=== PATIENT | male | born 1960 | race Caucasian/White ===

== ENCOUNTER 2018-06-20 08:12 | Day surgery (SDC) | payer BC ==
--- NOTE | 2018-06-16 15:43 | RAD REPORT ---
EXAM DESCRIPTION: RAD - Chest Pa And Lat (2 Views) - 06/16/2018 3:34 pm CLINICAL HISTORY: Preop chest, pending abdominal hernia repair, smoking history COMPARISON: None. TECHNIQUE: PA and lateral views of the chest were obtained. FINDINGS: The lungs are clear of a focal mass, consolidation or failure finding. Interstitial markin gs are mildly prominent presumed to be baseline. Heart size is normal and central vasculature is wi thin normal limits. No pleural effusion or pneumothorax seen. No acute bony finding noted. No aort ic abnormality. IMPRESSION: No acute cardiopulmonary process.
[2018-06-16 15:44] LABS: Absolute Lymphocytes (CBC) 3.5 K/uL (0.7-4.9); Absolute Monocytes 0.9 K/uL (0.1-1.3); Absolute Neutrophil 6.9 K/uL (1.8-8.0); Basophils % 0.5 % (0-1.3); Eosinophils % 2.6 % (0-4.4); Hematocrit 47.8 % (39.6-49.0); Lymphocytes % 30.3 % (15.3-44.8); MPV 7.3 fL (7.6-11.3); Monocytes % 7.4 % (3.3-12.3); RBC Red Blood Cell Count 5.04 M/uL (4.33-5.43)
[2018-06-16 15:50] LABS: BUN Blood Urea Nitrogen 11 mg/dL (7-18); Bicarbonate 28 mmol/L (21-32); Glucose Level 84 mg/dL (74-106); Sodium Level 143 mmol/L (136-145)
--- NOTE | 2018-06-16 21:37 | EKG ---
Test Date: 2018-06-16 Test Time: 15:20:42 Junior Account Manager: DAKOTA MEASUREMENT RESULTS: Intervals: Rate: 69 MO: 174 QRSD: 86 QT: 386 QTc: 413 Jackson: P: 53 MO: 174 QRS: 38 T: 58 INTERPRETIVE STATEMENTS: Normal sinus rhythm with sinus arrhythmia Normal ECG Compared to ECG 04/30/2015 14:19:56 No significant changes Electronically Signed On 06-16-18 21:35:31 OPHTHALMIC MEDICAL TECHNOLOGIST by Jonathon Wood
[2018-06-20] MEDS ORDERED: Ringers Lactate 1,000 ML IV ONE (08:41)
[2018-06-20] MEDS ORDERED: BUPIVACAINE 0.5% PF 10 ML VIAL ONE (08:43)
[2018-06-20] MEDS ORDERED: PROPOFOL 200 MG/20 ML VIAL IV ONE (08:50)
[2018-06-20] MEDS ORDERED: ONDANSETRON 4 MG/2 ML VIAL ONE (08:51)
[2018-06-20] MEDS ORDERED: ROCURONIUM 50 MG/5 ML VIAL IV ONE (08:51)
[2018-06-20] MEDS ORDERED: MIDAZOLAM HCL 2 MG/2 ML INJ ONE (08:51)
[2018-06-20] MEDS ORDERED: LIDOCAINE 2% MPF 5 ML VIAL ONE (08:51)
[2018-06-20] MEDS ORDERED: FENTANYL CITR 100 MCG/2 ML ONE (08:51)
[2018-06-20] MEDS ORDERED: CEFAZOLIN/SWI 1gm 1 GM/10 ML SYR ONE (08:58)
--- NOTE | 2018-06-20 09:34 | P.BOP ---
Preoperative diagnosis: incarcerated incisional ventral hernia Postoperative diagnosis: same Primary procedure: Open repair of incarcerated incisional ventral hernia Mica Plate Layer Hand: Snow Hernandez (Radha) Estimated blood loss: <20cc Specimen: henia sac Findings: incarcerated omentum Anesthesia: General Complications: None Transferred to: Recovery Room Condition: Good
[2018-06-20] MEDS ORDERED: GLYCOPYRROLATE 0.2 MG/ML SYR ONE (09:36)
[2018-06-20] MEDS ORDERED: NEOSTIGMINE 1 MG/ML -10 ML VIAL ONE (09:36)
[2018-06-20] MEDS ORDERED: KETOROLAC 30 MG/ML INJ ONE (09:36)
[2018-06-20] MEDS ORDERED: CODEINE 30MG/APAP 300MG TAB ONE (11:15)
--- NOTE | 2018-06-20 20:44 | DS ---
Date of Discharge: 06/20/2018 Diagnosis: Incarcerated incisional ventral hernia. Procedure: Open repair of incarcerated incisional ventral hernia. Disposition: Home. Activity: As tolerated. No heavy lifting. Followup Instructions: Follow up in my office in 1 week. Call for an appointment on [phone]. Keep the area dry for 48 hours, then may shower. Keep Steri-Strips intact. Home Medications: See orders. ALISON/MARTIN Voice ID: [id number] Report ID: [id number]
--- NOTE | 2018-06-20 20:44 | OP ---
Date of Procedure: 06/20/2018 Surgeon: Rasheed Wray MD Rn Obgyn: Snow Hernandez. Preoperative Diagnosis: Incarcerated incisional ventral hernia. Postoperative Diagnosis: Incarcerated incisional ventral hernia. Procedure: Open repair of incarcerated incisional ventral hernia. Specimen: Hernia sac. Findings: Incarcerated omentum. Indications: This is the case of a 58-year-old patient who had abdominal surgery done, he claimed, a bout 30 years ago, midline incision, now comes with bulging of the upper ventral region, diagnosed wi th an incarcerated incisional hernia. He wanted a repair. This was giving him pain and discomfort. The benefits, alternatives, and risks of repair, open versus laparoscopic, were fully explained to t he patient, including also possibly use of mesh with benefits, alternatives, and risks including, but not limited to infection, bleeding, damage to adjacent structures, anesthesia complications, recurre nce, NE, and even . He also understands this may not relieve the symptoms. He might need more than one surgical intervention. It was explained to him the pros and cons of mesh placement. All th e questions were answered to his satisfaction, and he will allow me to use mesh if needed. Description Of Procedure: The patient was brought to the operating room, placed in supine position. The area of concern was marked by me and the patient in the holding room. A time-out was called. A bdomen was prepped and draped in a sterile fashion. A midline incision was done over the area of the bulging, and hernia was found. Incision was carried down to fascia. We noticed that hernia just to be viable. It had some incarcerated omentum. After removing some adhesions, we were able to reduce back the omentum, and the hernia sac was carefully removed. The fascial edges were cleaned. After we got the fascia edges together, we proceeded then to close the fascia edges with #1 Prolene in a fi [id number] fashion multiple times. Sponge count and instrument counts were correct. A 3-0 chromi c was used to close the subcutaneous tissue and then the skin in a subcuticular fashion with 4-0 PDS. The patient was sent to recovery room in stable condition. Sponge count and instrument counts were correct. ALISON/MARTIN Voice ID: [id number] Report ID: [id number]
== END 2018-06-20 12:10 | disposition home or self-care (01) ==
LOC: OR 08:12
PROVIDERS: ATTEND Surgery
PROC: 0WQF0ZZ Repair Abdominal Wall, Open Approach (ICD-10-PCS; principal; 2018-06-20 09:15)
DX: K43.0 Incisional hernia with obstruction, without gangrene (principal); F17.210 Nicotine dependence, cigarettes, uncomplicated
CPT/HCPCS: 36415; 71046; 80048; 85025; 88302; 93005; J0690; J2250; J2405; J2704; J2710; J3010

== ENCOUNTER 2025-01-31 06:00 | Day surgery (SDC) | payer BC, OTHER ==
[2025-01-29 11:16] LABS: Absolute Lymphocytes (CBC) 2.1 K/uL (0.7-4.9); Hematocrit 46.4 % (39.6-49.0); Hemoglobin 15.7 g/dL (13.6-17.9); MCH 32.5 pg (27.0-35.0); MCHC 33.9 g/dL (32.0-36.0); MCV 95.9 fL (80-100); MPV 6.7 fL (7.6-11.3); Nucleated RBC Absolute Count 0.0 (0-0); Nucleated Red Blood Cells % 0.1 % (0-0); RBC Red Blood Cell Count 4.84 M/uL (4.33-5.43); White Blood Count 9.30 thou/uL (4.3-10.9)
[2025-01-29 11:31] LABS: Anion Gap 6.5 mEq/L (5.0-15.0); BUN Blood Urea Nitrogen 11.0 mg/dL (7-18); Glucose Level 101.0 mg/dL (74-106); Potassium 4.5 mEq/L (3.5-5.1)
--- NOTE | 2025-01-29 11:44 | RAD REPORT ---
Procedure: Chest Pa And Lat (2 Views) HISTORY: Preop COMPARISON: 2021 FINDINGS: The lungs appear clear of acute infiltrate.. Lungs are mildly to moderately hyperaerated. No significant pleural effusion noted. The heart is normal size. IMPRESSION: No acute abnormality is displayed.
[2025-01-31] MEDS ORDERED: Ringers Lactate 1,000 ML IV ONE (06:24)
[2025-01-31] MEDS ORDERED: ROCURONIUM 50 MG/5 ML VIAL IV ONE (07:16)
[2025-01-31] MEDS ORDERED: FENTANYL CITR 100 MCG/2 ML ONE (07:16)
[2025-01-31] MEDS ORDERED: ONDANSETRON 4 MG/2 ML VIAL ONE (07:16)
[2025-01-31] MEDS ORDERED: LIDOCAINE 2% MPF 5 ML VIAL ONE (07:16)
[2025-01-31] MEDS ORDERED: MIDAZOLAM HCL 2 MG/2 ML INJ ONE (07:16)
[2025-01-31] MEDS: CEFAZOLIN SODIUM 1 GM/VIAL ONE (07:59)
[2025-01-31] MEDS ORDERED: GLYCOPYRROLATE 0.2 MG/ML SYR ONE ×2 (08:13→08:26)
[2025-01-31] MEDS ORDERED: NEOSTIGMINE 1 MG/ML -10 ML VIAL ONE (08:25)
[2025-01-31] MEDS ORDERED: KETOROLAC 30 MG/ML INJ ONE (08:31)
--- NOTE | 2025-01-31 08:44 | P.BOP ---
Preoperative diagnosis: tender reducible Left inguinal hernia, left post neck subQ mass Postoperative diagnosis: same Primary procedure: 1. Laparoscopic repair of tender reducible Left inguinal hernia with mesh Secondary procedure: 2. Excisional biopsy of left posterior neck subQ mass Estimated blood loss: <10cc Specimen: mass Findings: mass Anesthesia: General Complications: None Implants: medium ParieteneDS, MAxTack Transferred to: Recovery Room Condition: Good
[2025-01-31 09:12] VITALS: O2SAT 97
[2025-01-31] MEDS: TAMSULOSIN 0.4 MG SR CAP ONE (10:05)
[2025-01-31 10:37] VITALS: BP 157/63; TEMP 97
--- NOTE | 2025-02-01 19:55 | OP ---
Surgeon: Rasheed Wray MD Preoperative Diagnoses: Tender reducible left inguinal hernia and left posterior neck subcutaneous m ass. Postoperative Diagnoses: Tender reducible left inguinal hernia and left posterior neck subcutaneous mass. Procedures: 1. Laparoscopic repair of tender reducible left inguinal hernia with mesh. 2. Excisional biopsy of left posterior neck subcutaneous mass. Estimated Blood Loss: Less than 10 cc. Specimen: Mass. Anesthesia: General plus local. Implants: Medium Parietene DS mesh and MaxTack on the inguinal hernia. Indications: This is the case of a 64-year-old patient who came to us with two problems. He wants t wo of them fixed at the same time. The most important of those will be the hernia. The benefits, al ternatives, and risks of laparoscopic versus open repair of left inguinal hernia with mesh and also e xcisional biopsy of neck mass fully explained, which include, but not limited to, infection, bleeding , damage to adjacent structures, anesthesia complication, recurrence, AL, and even . He also un derstands this may not relieve any symptoms, he might need more than one surgical intervention. He u nderstood, signed a consent. We explained to him we will be doing the hernia first because we might have to do mesh in that region. We wanted to make sure that it is absolutely pristine clean. He und erstands we might have to just finish the hernia, then reach parietal peritoneum again and start the neck mass. He knows that the surgical team knows about that too. Description Of Procedure: So, we went first to the hernia. Abdomen was prepped and draped in a ster ile fashion including the inguinal region. A time-out was called. An incision was made of the infra umbilical region. Incision was carried down to fascia until when we found the anterior rectus sheath . We opened that on the left side. The muscle retracted laterally to expose the posterior rectus sh eath. The extraperitoneal space was gently developed with the help of blunt dissection and a balloon tipped trocar was placed in that area directed to the pubis symphysis, and after that, with the lapa roscope in place, we proceeded to inflate the balloon until we created the extraperitoneal space. Af ter that, the balloon was deflated, removed. The area was insufflated. Camera was placed once again and under direct visualization after insufflation, a 5 mm trocar was placed just above the pubis sym physis and another one assisted between the first and the second one. The preperitoneal space was fur ther developed by exposing the inferior epigastric vessels keeping them anterior. The Miguel's ligam ent was dissected lateral to a junction with the iliac veins and dissection continued inferiorly to t he iliopubic tract avoiding damage to the femoral branch of the genitofemoral nerve. The cord struct ures were carefully skeletonized. The hernia was identified and reduced by gentle traction into the peritoneal cavity. After that, we proceeded then to roll a Parietene DS mesh into the area of the wo rking space through the trocar, and the mesh was secured in place laterally and superior to the iliop ubic tract and inferior and medial to the Miguel's ligament with the help of MaxTack device. After e nsuring adequate hemostasis, the insufflation was stopped and the air allowed to escape while we were holding the mesh in place. The trocars were removed, and anterior rectus sheath was approximated wi th #1 Vicryl and the skin approximated. The patient tolerated the procedure well. Sponge counts and instrument counts were correct. After that, we took everything down and re-scrub everything again f or the posterior neck mass. The area was previously marked by me and the patient in the holding room . So, we prepped and draped the left posterior neck in the usual sterile fashion. At that moment, w e already have sponge counts and instrument counts correct and a time-out again. Once we identified the area, we made an incision in a wedged fashion. Incision was carried down to subcutaneous tissue. The mass was excised. Area was irrigated. Then, after that, obtained hemostasis and then closed t he area with a combination of absorbable stitches. Sterile dressings were placed over the area. Spo nge counts and instrument counts were correct. The patient sent to recovery in stable condition. ALISON/MARTIN Voice ID: [id number] Report ID: [id number]
--- NOTE | 2025-02-01 19:59 | DS ---
Date of Discharge: 01/31/2025 Diagnoses: Tender reducible left inguinal hernia and left posterior neck subcutaneous mass. Procedure: Laparoscopic repair of tender reducible left inguinal hernia with mesh and excisional bio psy of left posterior neck subcutaneous mass. Condition: Stable. Disposition: Home. Activity: As tolerated. No heavy lifting. Discharge Instructions: Follow up in my office in 1 week. Call for appointment at [phone]. Keep a autumn dry for 48 hours, then may shower medications were called to the pharmacy. AILSON/MARTIN Voice ID: [id number] Report ID: [id number]
== END 2025-01-31 10:50 | disposition home or self-care (01) ==
LOC: OR 06:00
PROVIDERS: ATTEND Surgery
PROC: 0JB50ZZ Excision of Left Neck Subcutaneous Tissue and Fascia, Open Approach (ICD-10-PCS; principal; 2025-01-31 07:30)
PROC: 0YU64JZ Supplement Left Inguinal Region with Synthetic Substitute, Percutaneous Endoscopic Approach (ICD-10-PCS; 2025-01-31 07:30)
DX: K40.90 Unilateral inguinal hernia, without obstruction or gangrene, not specified as recurrent (principal); L72.0 Epidermal cyst
CPT/HCPCS: 93005; 85025; 80048; 36415; 88304; 71046; 11422; 49650; J1885; J2704; J2710; J2003; J2250; J3010; J1100; J2405; J7120; J0690; C1781

== ENCOUNTER 2025-01-31 18:11 | Emergency (ER) | payer BC, OTHER ==
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
[2025-01-31] MEDS ORDERED: TAMSULOSIN 0.4 MG SR CAP ONE (19:18)
[2025-01-31] MEDS ORDERED: HYDROCODONE/APAP 7.5/325 MG TAB ONE (20:02)
[2025-01-31 20:12] LABS: Absolute Lymphocytes (CBC) 0.9 K/uL (0.7-4.9); Hematocrit 43.9 % (39.6-49.0); Hemoglobin 15.1 g/dL (13.6-17.9); MCH 32.3 pg (27.0-35.0); MCHC 34.3 g/dL (32.0-36.0); MCV 94.3 fL (80-100); MPV 7.0 fL (7.6-11.3); Nucleated RBC Absolute Count 0.0 (0-0); Nucleated Red Blood Cells % 0.0 % (0-0); RBC Red Blood Cell Count 4.66 M/uL (4.33-5.43); White Blood Count 16.70 thou/uL (4.3-10.9)
[2025-01-31 20:15] LABS: Blood Morphology Comment NOT SEEN (NOT SEEN); White Blood Cell Scan OK (OK)
[2025-01-31 20:40] LABS: Anion Gap 10.8 mEq/L (5.0-15.0); BUN Blood Urea Nitrogen 14.0 mg/dL (7-18); Glucose Level 113.0 mg/dL (74-106); Potassium 4.8 mEq/L (3.5-5.1)
[2025-01-31 20:41] LABS: Sqamous Epithelial None Seen /HPF (None Seen); Urine Crystals Unidentified Few /HPF (None Seen); Urine Culture Reflex Order REFLEXED; Urine Microscopic Reflex YN ORDER UMIC
[2025-01-31] MEDS ORDERED: CEFTRIAXONE 1000 MG/VIAL ONE (20:58)
[2025-01-31] MEDS ORDERED: NA CHLORIDE 0.9% 50 ML ONE (20:59)
--- NOTE | 2025-01-31 21:35 | EDPHYS ---
Physician Documentation [facility] Name: Stevan Wong Age: 64 yrs Sex: Male : 1960 Arrival Date: 01/31/2025 Time: 18:11 Bed 4 Private MD: ED Physician Jaylon Mcdonald HPI: 01/31 19:00 This 64 yrs old Male presents to ER via Ambulatory with complaints of Urinary Problem. cp 19:00 Patient is a 64-year-old male who presents to the emergency department with complaints cp of inability to urinate. Patient reports she was discharged from the hospital today after having hernia repair surgery by Dr. Wray. Prior to discharge the Bowie catheter was removed and patient reports he has not been able to urinate since removal of the Bowie catheter. Patient denies fever and reports he was discharged with a prescription of antibiotics postsurgery. Historical: - Allergies: 18:39 No Known Allergies; jb4 - PMHx: 18:39 hernia; jb4 - PSHx: 18:39 hernia repair; jb4 - Immunization history:: Adult Immunizations unknown. - Infectious Disease History:: Denies. - Social history:: Smoking status: Patient reports the use of cigarette tobacco products, smokes one pack cigarettes per day. ROS: 19:05 Constitutional: Negative for body aches, chills, fever, poor PO intake, cp 19:05 Cardiovascular: Negative for chest pain, palpitations, cp 19:05 Respiratory: Negative for cough, shortness of breath, wheezing, 19:05 Abdomen/GI: Positive for abdominal pain, nausea, Negative for vomiting, diarrhea, constipation, 19:05 : Positive for difficulty urinating, 19:05 Neuro: Negative for altered mental status, dizziness, headache, weakness, 19:05 All other systems are negative, Exam: 19:05 Head/Face: Normocephalic, atraumatic. cp 19:05 Constitutional: The patient appears in no acute distress, alert, awake, non-diaphoretic, non-toxic, well developed, well nourished, uncomfortable, 19:05 Eyes: Periorbital structures: appear normal, Conjunctiva: normal, no exudate, no injection, Sclera: no appreciated abnormality, Lids and lashes: appear normal, bilaterally, 19:05 ENT: External ear(s): are unremarkable, Nose: is normal, Mouth: Lips: moist, Oral mucosa: moist, Posterior pharynx: Airway: no evidence of obstruction, patent, 19:05 Chest/axilla: Inspection: normal, 19:05 Cardiovascular: Rate: normal, Rhythm: regular, Edema: is not appreciated, JVD: is not appreciated, 19:05 Respiratory: the patient does not display signs of respiratory distress, Respirations: normal, no use of accessory muscles, no retractions, labored breathing, is not present, Breath sounds: are clear throughout, no decreased breath sounds, no stridor, no wheezing, 19:05 Abdomen/GI: Inspection: abdomen appears normal, Bowel sounds: active, all quadrants, Palpation: soft, in all quadrants, moderate abdominal tenderness, in the suprapubic area, rebound tenderness, is not appreciated, 19:05 Back: CVA tenderness, is absent, 19:05 Neuro: Orientation: to person, place \T\ time. Mentation: is normal, Motor: moves all fours, strength is normal, Sensation: is normal, Gait: is steady, Vital Signs: 18:32 BP 153 / 106; Pulse 77; Resp 16; Pulse Ox 99% on R/A; Weight 62.14 kg (R); Height 5 ft. jb4 8 in. ; Pain 9/10; 20:14 BP 153 / 79; Pulse 66; Resp 18; Pulse Ox 100% on R/A; kb4 21:56 BP 132 / 90; Pulse 54; Resp 18; Pulse Ox 100% on R/A; kb4 18:32 Body Mass Index 20.83 (62.14 kg, 172.72 cm) jb4 18:32 Pain Scale: Adult jb4 MDM: 21:33 Data reviewed: vital signs, nurses notes, lab test result(s), and as a result, I will cp discharge patient. 21:33 I considered the following discharge prescriptions or medication management in the cp emergency department Medications were administered in the Emergency Department. See MAR. Counseling: I had a detailed discussion with the patient and/or guardian regarding the historical points, exam findings, and any diagnostic results supporting the discharge/admit diagnosis, lab results, the need for outpatient follow up, for definitive care, a urologist, to return to the emergency department if symptoms worsen or persist or if there are any questions or concerns that arise at home. Response to treatment: the patient's symptoms have resolved after treatment, Bowie Catheter placed with approximately 600 cc urine output. Labs reviewed and will discharge to home with Bowie catheter in place to f/u with urology. 21:34 Medical Screening Exam initiated cp 01/31 18:50 Order name: CBC with Diff; Complete Time: 20:22 cp 01/31 20:22 Interpretation: Normal except: WBC 16.70; MPV 7.0; ARIAN% 90.7; LYM% 5.6; NEUT A 15.2. cp 01/31 20:15 Order name: CBC Smear Scan; Complete Time: 20:22 EDMS 01/31 20:22 Order name: UA Rfx Nicholas Cult if indicated; Complete Time: 20:51 cp 01/31 21:31 Interpretation: Reviewed. cp 01/31 20:23 Order name: BMP; Complete Time: 20:51 cp 01/31 20:51 Interpretation: Normal except: NA 131; GLUC 113; GFR 73. cp 01/31 20:52 Order name: Urine Culture EDMS 01/31 18:50 Order name: IV Saline Lock; Complete Time: 19:25 cp 01/31 18:50 Order name: Labs collected and sent; Complete Time: 19:25 cp 01/31 18:50 Order name: Bladder Scanner: pre and post void; Complete Time: 19:44 cp 01/31 18:50 Order name: Bowie: if unable to void; Complete Time: 19:53 cp Administered Medications: 19:25 Drug: Flomax PO 0.4 mg PO once Route: PO; kb4 20:15 Follow up: Response: No adverse reaction kb4 20:05 Drug: Hydrocodone-Acetaminophen PO (7.5 mg-325 mg) 1 tabs PO once; RASS on ADMIN: kb4 Combtv4, Very Agttd3, Agttd2, Rstlss1, AlertClm0, Drwsy-1, Lt Sdtn-2, Mod Sdtn-3, Dp Sdtn-4, UnArsble-5 Route: PO; 20:15 Follow up: Response: No adverse reaction kb4 21:58 Follow up: Response: No adverse reaction kb4 21:02 Drug: Rocephin IV 1 grams IV at calculated rate once; Given slow IV push per pharmacy kb4 instructions Route: IV; Rate: calculated rate; Site: right antecubital; 21:58 Follow up: Response: No adverse reaction kb4 21:57 Drug: Ciprofloxacin PO 500 mg PO once Route: PO; kb4 21:58 Follow up: Response: Medication administered at discharge. kb4 Disposition: 02/01 19:59 Chart complete. cp 20:09 I was immediately available on-site in the Emergency Department for consultation in the ms3 care of the patient. Disposition Summary: 01/31/25 21:34 Discharge Ordered Notes: Location: Home cp Problem: new cp Symptoms: have improved cp Condition: Stable cp Diagnosis - Retention of urine, unspecified cp - UTI/ Urinary tract infection, site not specified cp Followup: cp - With: Freddy Jaquez MD - When: 5 - 6 days - Reason: urine retention Discharge Instructions: - Discharge Summary Sheet cp - Acute Urinary Retention, Male cp - Urinary Tract Infection, Adult cp Forms: - Medication Reconciliation Form cp - Antibiotic Education cp - Prescription Opioid Use cp - Patient Portal Instructions cp - Leadership Thank You Letter cp Prescriptions: - Cephalexin 500 mg Oral Capsule - take 1 capsule ORAL route every 12 hours for 10 days; 20 capsule; Refills: 0, cp Product Selection Permitted Signatures: Dispatcher [employer] EDIL Mateo Ruelas PA-C PA-C cp Bert Travis, RN RN jb4 Jaylon Mcdonald DO DO ms3 Stella Varghese, ARIK RN kb4 Corrections: (The following items were deleted from the chart) 01/31 20:23 20:23 BASIC METABOLIC PANEL+C.LAB.BRZ ordered. [facility] EDIL 02/01 19:59 01/31 21:33 Response to treatment: the patient's symptoms have resolved after cp treatment, Bowie Catheter placed with approximately 400 to 500 cc urine output. Labs reviewed and will discharge to home with Bowie catheter in place to f/u with urology, cp
--- NOTE | 2025-01-31 21:35 | ER ---
Nurse's Notes [facility] Name: Stevan Wong Age: 64 yrs Sex: Male : 1960 Arrival Date: 01/31/2025 Time: 18:11 Bed 4 Private MD: Diagnosis: Retention of urine, unspecified;UTI/ Urinary tract infection, site not specified Presentation: 01/31 18:32 Chief complaint: Patient states: I had hernia repair surgery earlier this morning. They jb4 put a wells in during the surgery and pulled it out around 0930, I have not been able to urinate since. Coronavirus screen: At this time, the client does not indicate any symptoms associated with coronavirus-19. Ebola Screen: No symptoms or risks identified at this time. Initial Sepsis Screen: Does the patient meet any 2 criteria? No. Patient's initial sepsis screen is negative. Does the patient have a suspected source of infection? No. Patient's initial sepsis screen is negative. Risk Assessment: Do you want to hurt yourself or someone else? Patient reports no desire to harm self or others. Onset of symptoms was January 31, 2025. Transition of care: patient was not received from another setting of care. 18:32 Method Of Arrival: Ambulatory jb4 18:32 Acuity: AJAY 3 jb4 Triage Assessment: 18:32 General: Appears in no apparent distress. uncomfortable, Behavior is calm, cooperative, jb4 appropriate for age. Pain: Complains of pain in suprapubic area Pain does not radiate. Pain currently is 9 out of 10 on a pain scale. Historical: - Allergies: 18:39 No Known Allergies; jb4 - PMHx: 18:39 hernia; jb4 - PSHx: 18:39 hernia repair; jb4 - Immunization history:: Adult Immunizations unknown. - Infectious Disease History:: Denies. - Social history:: Smoking status: Patient reports the use of cigarette tobacco products, smokes one pack cigarettes per day. Screenin:54 [facility] ED Fall Risk Assessment (Adult) History of falling in the last 3 months, kb4 including since admission No falls in past 3 months (0 pts) Confusion or Disorientation No (0 pts) Intoxicated or Sedated No (0 pts) Impaired Gait No (0 pts) Mobility Assist Device Used No (0 pt) Altered Elimination No (0 pt) Score/Fall Risk Level 0 - 2 = Low Risk. Abuse screen: Denies threats or abuse. Denies injuries from another. Nutritional screening: No deficits noted. Tuberculosis screening: No symptoms or risk factors identified. Assessment: 19:43 Reassessment: preformed bladder scan : 630ml. kb4 19:45 General: Appears in no apparent distress. uncomfortable, Behavior is calm, cooperative. kb4 Pain: Complains of pain in abdomen and pelvis and suprapubic area. Neuro: Level of Consciousness is awake, alert, obeys commands, Oriented to person, place, time, situation. Cardiovascular: Patient's skin is warm and dry. Respiratory: Airway is patent is compromised Respiratory effort is even, unlabored, Respiratory pattern is regular, symmetrical. GI: Abdomen is flat, Reports lower abdominal pain. : Wells in place to gravity drainage Urine is blood tinged, Reports inability to void. EENT: No signs and/or symptoms were reported regarding the EENT system. Derm: No signs and/or symptoms reported regarding the dermatologic system. Musculoskeletal: No signs and/or symptoms reported regarding the musculoskeletal system. 19:53 Reassessment: 18 fr Wells inserted. kb4 20:15 Reassessment: awaiting ride home. kb4 21:56 Reassessment: Patient and/or family updated on plan of care and expected duration. Pain kb4 level reassessed. Patient is alert, oriented x 3, equal unlabored respirations, skin warm/dry/pink. attached leg bag to catheter, provided education on catheter care. 21:58 Reassessment: Patient denies pain at this time. Patient states feeling better. Patient kb4 states symptoms have improved. Vital Signs: 18:32 BP 153 / 106; Pulse 77; Resp 16; Pulse Ox 99% on R/A; Weight 62.14 kg (R); Height 5 ft. jb4 8 in. ; Pain 9/10; 20:14 BP 153 / 79; Pulse 66; Resp 18; Pulse Ox 100% on R/A; kb4 21:56 BP 132 / 90; Pulse 54; Resp 18; Pulse Ox 100% on R/A; kb4 18:32 Body Mass Index 20.83 (62.14 kg, 172.72 cm) jb4 18:32 Pain Scale: Adult jb4 ED Course: 18:12 Patient arrived in ED. mr 18:15 Mateo Ruelas PA-C is PHCP. cp 18:15 Jaylon Mcdonald DO is Attending Physician. cp 18:34 Triage completed. jb4 18:40 Arm band placed on left wrist. jb4 19:16 Stella Varghese, RN is Primary Nurse. kb4 20:00 Patient has correct armband on for positive identification. Provided Education on: kb4 catheter care, follow up w/ urology . 20:00 Wells cath inserted, using sterile technique, 18 Fr., by dc, balloon inflated, to kb4 gravity drainage, clamped. Inserted saline lock: 20 gauge in right forearm, using aseptic technique. Blood collected. Flushed with 10 mL NS. 20:00 No provider procedures requiring assistance completed. Inserted saline lock: 20 gauge kb4 in right forearm, using aseptic technique. 21:33 Freddy Jaquez MD is Referral Physician. cp 21:57 IV discontinued, intact, bleeding controlled, No redness/swelling at site. Pressure kb4 dressing applied. Administered Medications: 19:25 Drug: Flomax PO 0.4 mg PO once Route: PO; kb4 20:15 Follow up: Response: No adverse reaction kb4 20:05 Drug: Hydrocodone-Acetaminophen PO (7.5 mg-325 mg) 1 tabs PO once; RASS on ADMIN: kb4 Combtv4, Very Agttd3, Agttd2, Rstlss1, AlertClm0, Drwsy-1, Lt Sdtn-2, Mod Sdtn-3, Dp Sdtn-4, UnArsble-5 Route: PO; 20:15 Follow up: Response: No adverse reaction kb4 21:58 Follow up: Response: No adverse reaction kb4 21:02 Drug: Rocephin IV 1 grams IV at calculated rate once; Given slow IV push per pharmacy kb4 instructions Route: IV; Rate: calculated rate; Site: right antecubital; 21:58 Follow up: Response: No adverse reaction kb4 21:57 Drug: Ciprofloxacin PO 500 mg PO once Route: PO; kb4 21:58 Follow up: Response: Medication administered at discharge. kb4 Medication: 21:59 VIS not applicable for this client. kb4 Outcome: 21:34 Discharge ordered by . cp 21:58 Discharged to home ambulatory, kb4 21:58 Condition: good 21:58 Discharge instructions given to patient, Instructed on discharge instructions, follow up and referral plans. medication usage, Demonstrated understanding of instructions, follow-up care, medications, Prescriptions given X 1, 21:59 Patient left the ED. kb4 Signatures: Candi Abrams, Reg Reg Mateo Salinas, Bert Scott PA-C, cp RN RN jb4 Stella Varghese RN RN kb4 Corrections: (The following items were deleted from the chart) 18:39 18:32 BP 153 / 106; Pulse 77bpm; Resp 16bpm; Pulse Ox 99% RA; jb4 jb4
[2025-01-31] MEDS ORDERED: CIPROFLOXACIN HCL 500 MG TAB ONE (21:41)
[2025-01-31 22:26] VITALS: O2SAT 100
[2025-01-31 22:28] VITALS: BP 132/90
== END 2025-01-31 21:59 | disposition home or self-care (01) ==
LOC: ER 18:11
DX: R33.9 Retention of urine, unspecified (principal); N39.0 Urinary tract infection, site not specified; Z98.890 Other specified postprocedural states; F17.210 Nicotine dependence, cigarettes, uncomplicated
CPT/HCPCS: 87088; 85025; 81001; 87086; 80048; 36415; 51702; 96374; 99285; J0696

== ENCOUNTER 2025-02-01 10:45 | Emergency (ER) | payer BC, OTHER ==
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
--- NOTE | 2025-02-01 11:19 | ER ---
Nurse's Notes [facility] Name: Stevan Wong Age: 64 yrs Sex: Male : 1960 Arrival Date: 02/01/2025 Time: 10:45 Bed 14 Private MD: Diagnosis: Unspecified injury of urethra, initial encounter Presentation: 02/01 11:00 Chief complaint: Patient states: HERNIA PROCEDURE YESTERDAY MORNING, CAME TO ER LAST dd2 NIGHT UNABLE TO URINATE, WOODS PLACED HERE LAST NIGHT AND D/C HOME. PT REPORTS THAT THE WOODS WAS LEAKING URINE THIS MORNING AND HE PULLED OUT THE WOODS WITH BALLOON INTACT, AND NOW HAS BLEEDING FROM PENIS. Coronavirus screen: At this time, the client does not indicate any symptoms associated with coronavirus-19. Ebola Screen: No symptoms or risks identified at this time. Initial Sepsis Screen: Does the patient meet any 2 criteria? No. Patient's initial sepsis screen is negative. Does the patient have a suspected source of infection? No. Patient's initial sepsis screen is negative. Risk Assessment: Do you want to hurt yourself or someone else? Patient reports no desire to harm self or others. Onset of symptoms was February 01, 2025 at 03:30. 11:00 Method Of Arrival: Ambulatory dd2 11:00 Acuity: AJAY 3 dd2 Triage Assessment: 11:06 General: Appears in no apparent distress. uncomfortable, Behavior is calm, cooperative, dd2 appropriate for age. Pain: Complains of pain in head of penis and shaft of penis. : Reports BLEEDING. Historical: - Allergies: 11:06 No Known Allergies; dd2 - PMHx: 11:06 Hernia; dd2 - PSHx: 11:06 hernia repair; dd2 - Immunization history:: Adult Immunizations up to date. - Infectious Disease History:: Denies. - Social history:: Smoking status: Patient reports the use of cigarette tobacco products, smokes one pack cigarettes per day. Screenin:35 [facility] ED Fall Risk Assessment (Adult) History of falling in the last 3 months, db including since admission No falls in past 3 months (0 pts) Confusion or Disorientation No (0 pts) Intoxicated or Sedated No (0 pts) Impaired Gait No (0 pts) Mobility Assist Device Used No (0 pt) Altered Elimination No (0 pt) Score/Fall Risk Level 0 - 2 = Low Risk Oriented to surroundings, Maintained a safe environment. Abuse screen: Denies threats or abuse. Denies injuries from another. Nutritional screening: No deficits noted. Tuberculosis screening: No symptoms or risk factors identified. Assessment: 11:35 Reassessment: Patient appears in no apparent distress at this time. Patient and/or db family updated on plan of care and expected duration. Pain level reassessed. Patient is alert, oriented x 3, equal unlabored respirations, skin warm/dry/pink. General: Appears in no apparent distress. comfortable, Behavior is calm, cooperative. Neuro: Level of Consciousness is awake, alert, obeys commands, Oriented to person, place, time, situation. Respiratory: Airway is patent Respiratory effort is even, unlabored, Respiratory pattern is regular, symmetrical. : BLOOD FROM URETHRA Reports urgency. Vital Signs: 11:00 BP 117 / 56; Pulse 80; Resp 16; Temp 98.3; Pulse Ox 100% on R/A; Weight 62.14 kg; Pain dd2 06/05; 11:00 Pain Scale: Adult dd2 ED Course: 10:49 Patient arrived in ED. al6 10:51 Jaylon Mcdonald DO is Attending Physician. ms3 11:06 Triage completed. dd2 11:06 Arm band placed on right wrist. dd2 11:18 Freddy Jaquez MD is Referral Physician. ms3 11:19 Leyda Mcmanus, ARIK is Primary Nurse. db 11:35 Patient has correct armband on for positive identification. Bed in low position. Call db light in reach. Side rails up X 1. Provided Education on: DISCHARGE. Pulse ox on. NIBP on. Warm blanket given. Pillow given. 11:35 No provider procedures requiring assistance completed. Patient did not have IV access db during this emergency room visit. Administered Medications: 11:20 Drug: Flomax PO 0.4 mg PO once Route: PO; db 11:35 Follow up: Response: No adverse reaction db Medication: 11:35 VIS not applicable for this client. db Outcome: 11:19 Discharge ordered by . ms3 11:35 Discharged to home ambulatory, db 11:35 Condition: stable 11:35 Discharge instructions given to patient, Instructed on discharge instructions, follow up and referral plans. 11:37 Patient left the ED. db Signatures: Jaylon Mcdonald DO DO ms3 Leyda Mcmanus RN RN db ALONDRA ABARCA RN RN dd2 Nury He al6
--- NOTE | 2025-02-01 11:19 | EDPHYS ---
Physician Documentation [facility] Name: Stevan Wong Age: 64 yrs Sex: Male : 1960 Arrival Date: 02/01/2025 Time: 10:45 Bed 14 Private MD: ED Physician Jaylon Mcdonald HPI: 02/01 20:24 This 64 yrs old Male presents to ER via Ambulatory with complaints of Problem With ms3 Urinary Catheter. 20:24 64-year-old male presents to the emergency department for urethral bleeding after he ms3 pulled his catheter out at 3:30 AM. Patient states his catheter was placed yesterday secondary to him being unable to urinate after hernia surgery. Patient states he has been able to urinate 5 times after his catheter was pulled. Patient requests Flomax and a prescription for Flomax. Historical: - Allergies: 11:06 No Known Allergies; dd2 - PMHx: 11:06 Hernia; dd2 - PSHx: 11:06 hernia repair; dd2 - Immunization history:: Adult Immunizations up to date. - Infectious Disease History:: Denies. - Social history:: Smoking status: Patient reports the use of cigarette tobacco products, smokes one pack cigarettes per day. ROS: 20:24 Constitutional: Negative for fever, and chills. Cardiovascular: Negative for chest ms3 pain, and palpitations. Respiratory: Negative for shortness of breath, cough, wheezing, and pleuritic chest pain, Abdomen/GI: Negative for abdominal pain, nausea, vomiting, diarrhea, and constipation, MS/Extremity: Negative for injury and deformity, 20:24 : Positive for Bleeding from urethra, Exam: 20:24 Constitutional: This is a well developed, well nourished patient who is awake, alert, ms3 and in no acute distress. Cardiovascular: Regular rate and rhythm with a normal S1 and S2. No gallops, murmurs, or rubs. Normal PMI, no JVD. No pulse deficits. Respiratory: Lungs have equal breath sounds bilaterally, clear to auscultation and percussion. No rales, rhonchi or wheezes noted. No increased work of breathing, no retractions or nasal flaring. Abdomen/GI: Soft, non-tender, with normal bowel sounds. No distension or tympany. No guarding or rebound. No evidence of tenderness throughout. 20:24 Skin: Warm, dry with normal turgor. Normal color with no rashes, no lesions, and no evidence of cellulitis. 20:24 : Blood from the urethral meatus, Vital Signs: 11:00 BP 117 / 56; Pulse 80; Resp 16; Temp 98.3; Pulse Ox 100% on R/A; Weight 62.14 kg; Pain dd2 2/10; 11:00 Pain Scale: Adult dd2 MDM: 11:16 Medical Screening Exam initiated ms3 20:24 Differential diagnosis: Urethral injury versus hematuria. Data reviewed: vital signs, ms3 nurses notes, and as a result, I will discharge patient. Counseling: I had a detailed discussion with the patient and/or guardian regarding the historical points, exam findings, and any diagnostic results supporting the discharge/admit diagnosis, the need for outpatient follow up, to return to the emergency department if symptoms worsen or persist or if there are any questions or concerns that arise at home. ED course: Discussed with patient necessity for Bowie catheter placement. Patient declines Bowie catheter placement stating he will see Dr. Jaquez at 1:30 PM. Patient requesting Flomax in the emergency department and prescription for Flomax. Patient given Flomax in the emergency department and a prescription for Flomax. Patient to follow-up Dr. Jaquez as he has scheduled. All questions were answered. Return precautions were discussed to include worsening symptoms, or any concerns.. Administered Medications: 11:20 Drug: Flomax PO 0.4 mg PO once Route: PO; db 11:35 Follow up: Response: No adverse reaction db Disposition Summary: 02/01/25 11:19 Discharge Ordered Notes: Location: Home ms3 Condition: Stable ms3 Diagnosis - Unspecified injury of urethra, initial encounter ms3 Followup: ms3 - With: Freddy Jaquez MD - When: Today - Reason: Recheck today's complaints Forms: - Medication Reconciliation Form ms3 - Antibiotic Education ms3 - Prescription Opioid Use ms3 - Patient Portal Instructions ms3 - Leadership Thank You Letter ms3 Signatures: Jaylon Mcdonald DO DO ms3 Leyda Mcmanus RN RN db ALONDRA ABARCA RN RN dd2
[2025-02-01] MEDS ORDERED: TAMSULOSIN 0.4 MG SR CAP ONE (11:27)
[2025-02-01 11:46] VITALS: BP 117/56; TEMP 98.3; O2SAT 100
== END 2025-02-01 11:37 | disposition home or self-care (01) ==
LOC: ER 10:45
DX: S37.30XA Unspecified injury of urethra, initial encounter (principal); F17.210 Nicotine dependence, cigarettes, uncomplicated
CPT/HCPCS: 99283